=== PATIENT | female | born 1945 | race Caucasian/White ===

== ENCOUNTER 2023-06-25 14:57 | Emergency (ER) | payer MEDICARE, BC ==
[~2023-06-25] VITALS: Ht 154.9 cm; Wt 57.6 kg
[2023-06-25 15:11] VITALS: BP 193/81
== END 2023-06-25 16:15 | disposition home or self-care (01) ==
LOC: ER 14:57
DX: H57.89 Other specified disorders of eye and adnexa (principal); H43.391 Other vitreous opacities, right eye
CPT/HCPCS: 99283-25